=== PATIENT | male | born 1995 | race Native Hawaiian/Other Pacific Islander ===

== ENCOUNTER 2022-11-18 21:05 | Emergency (ER) | payer MEDICAID, OTHER, SELFPAY ==
[2022-11-18 21:14] VITALS: BP 134/95; PULSE 108; RESP 18; TEMP 36.6; O2SAT 99; BMI 29.8
[2022-11-18 21:45] LABS: Hematocrit 48.9 % (42.0-52.0); Hemoglobin 15.8 g/dl (14.0-18.0); Mean Corpuscular HGB Conc 32.3 g/dl (31.0-36.0); Mean Corpuscular Hemoglobin 26.9 pg (27.0-33.0); Mean Corpuscular Volume 83.2 fL (80.0-98.0); Mean Platelet Volume 9.6 fL (9.4-12.4); Platelet Count 266 X10*3/uL (160-400); Red Blood Count 5.88 X10*6/uL (4.60-5.80); Red Cell Distribution Width 13.2 % (11.0-16.0); White Blood Count 6.3 X10*3/uL (4.8-10.8)
[2022-11-18 21:58] LABS: Amphetamine Screen Urine Not Detected (Not Detect); Barbiturates, Urine Not Detected (Not Detect); Benzodiazepines Screen Urine Not Detected (Not Detect); Cannabinoid Screen Urine Not Detected (Not Detect); Cocaine Screen Urine Not Detected (Not Detect); Fentanyl, urine Not Detected (Not Detect); Opiate Screen Urine Not Detected (Not Detect); Phencyclidine Screen Urine Not Detected (Not Detect)
[2022-11-18 21:59] LABS: COVID-19 Test Negative (Negative); IDNOW Serial# 6674DD1D
[2022-11-18 22:01] LABS: Alanine Aminotransferase 45 U/L (0-40); Albumin Level 4.9 g/dL (3.5-5.0); Alkaline Phosphatase 97 U/L (39-117); Anion Gap 17 (12-20); Aspartate Amino Transferase 30 U/L (5-37); Bilirubin Total 0.7 mg/dL (0.0-1.0); Blood Urea Nitrogen 11 mg/dL (9-16); Calcium 10.2 mg/dL (8.4-10.2); Carbon Dioxide 26 mmol/L (22-29); Chloride 102 mmol/L (96-108); Creatinine Clr Calc Pharmacy 127.5; Estimated Glomerular Filt Rate > 60; Ethanol < 10 mg/dL; Glucose Random 105 mg/dL (60-115); Potassium 3.8 mmol/L (3.3-5.1); Sodium 141 mmol/L (135-145)
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
[2022-11-18 22:31] LABS: Acetaminophen LAB < 17 mcg/mL (<30); Salicylate < 5.0 mg/dL (15-30)
[2022-11-18] MEDS: LORazepam 1 MG TABLET 2 MG PO (23:57)
[2022-11-19 00:10] VITALS: BP 136/84; PULSE 89; RESP 17; TEMP 36.6; O2SAT 99
--- NOTE | 2022-11-19 01:40 | PC.NURSE ---
Patient in currently in bed appears sleeping, no distress observed/reported, Ativan 2 mg PO administered at 2357 for increased restlessness with + effect, patient arrived in [place] a [place] ago, no psychiatric history, currently not on any medication, VSS, Kyrgyz speaking only, disposition per care team is section 12 inpatient bed search, behavior non concerning, will continue to monitor.
--- NOTE | 2022-11-19 11:00 | PC.NURSE ---
Patient calm and cooperative ambulating around pod and talking on the phone with .
--- NOTE | 2022-11-19 11:07 | MHC.CARE ---
RAD Team [facility], however, there are no available beds statewide. Patient is uninsured which poses a barrier. The bed search will be exhausted today and resumed tomorrow 11/20/22 if deemed necessary. CARE team has been notified.
--- NOTE | 2022-11-19 13:28 | MHC.CARE ---
Per Dr Hansen, pt does not meet criteria for IPLOC. Pt is declining intermediate placement
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
[2022-11-19 13:44] VITALS: BP 129/77; PULSE 105; RESP 16; TEMP 36.4; O2SAT 97
== END 2022-11-19 14:02 | disposition home or self-care (01) ==
PROVIDERS: Emergency Provider Emergency Medicine
DX: F43.22 Adjustment disorder with anxiety (principal); F33.1 Major depressive disorder, recurrent, moderate; R45.851 Suicidal ideations; Z20.822 Contact with and (suspected) exposure to COVID-19; Z20.828 Contact with and (suspected) exposure to other viral communicable diseases; Z79.899 Other long term (current) drug therapy
CPT/HCPCS: 36415; 80053; 80143; 80179; 80307; 85027; 87635; 99284; S9485

== ENCOUNTER 2022-11-19 17:40 | Inpatient (IN) | payer MEDICAID, OTHER, SELFPAY ==
[2022-11-19 17:50] VITALS: BP 121/82; PULSE 115; RESP 18; TEMP 36.6; O2SAT 96; BMI 26.7
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
[2022-11-19 19:19] LABS: COVID-19 Test Negative (Negative); IDNOW Serial# 6674DD1D
--- NOTE | 2022-11-20 06:21 | PC.NURSE ---
Patient slept through the night, no distress observed/reported, behavior non concerning, medication rec completed/pending provider's approval, patient was assessed by care team disposition current provider, patient will be discharged in the morning, VSs, will continue to monitor
[2022-11-20 06:35] VITALS: BP 115/67; PULSE 67; RESP 16; TEMP 36.8; O2SAT 97
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
[2022-11-20] MEDS: clonazePAM 1 MG TABLET PO (13:35)
[2022-11-20] MEDS: clonazePAM 0.5 MG TABLET PO (20:41)
[2022-11-20] MEDS: QUEtiapine Fumarate 50 MG TABLET PO (21:19)
[2022-11-20 22:30] VITALS: BP 111/63; PULSE 75; RESP 17; TEMP 36.7; O2SAT 96
--- NOTE | 2022-11-21 | ECG_ITS ---
Test Reason : MED CLEARANCE Blood Pressure : / mmHG Vent. Rate : 081 BPM Atrial Rate : 081 BPM P-R Int : 168 ms QRS Dur : 078 ms QT Int : 350 ms P-R-T Axes : 064 059 057 degrees QTc Int : 406 ms Poor data quality, interpretation may be adversely affected Normal sinus rhythm Normal ECG No previous ECGs available Referred By: Zainab Baig Electronically Signed By:JENIFER OLSON MD
--- NOTE | 2022-11-21 03:05 | PC.NURSE ---
Pt sleeping at the bedside in no apparent distress. Breaths are even, regular, and unlabored with equal chest rises. Will continue to monitor.
[2022-11-21 06:52] VITALS: BP 94/57; PULSE 63; RESP 17; TEMP 36.8; O2SAT 99
[2022-11-21] MEDS: QUEtiapine Fumarate 50 MG TABLET PO ×2 (12:03→23:19)
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
[2022-11-21] MEDS: clonazePAM 1 MG TABLET PO (14:21)
[2022-11-21] MEDS: clonazePAM 0.5 MG TABLET PO (20:27)
[2022-11-21 20:43] VITALS: BP 130/71; PULSE 83; RESP 20; TEMP 36.6; O2SAT 98
[2022-11-21 21:36] VITALS: BMI 32.2
[2022-11-21 22:24] VITALS: BP 131/75; PULSE 82; TEMP 36.4; O2SAT 97
[2022-11-21] MEDS: traZODone HCL 50 MG TABLET PO (23:19)
--- NOTE | 2022-11-22 03:15 | PC.ADMIT ---
this is the first [facility] M3 admission for this Vietnamese speaking 27 year old male. legal: arrived to unit with section B signed by unit provider. also had a signed CV witnessed by this director underwriter sales and then submitted 3 day notice. was a referral from the emergency room after assessment by the CARE team. nurse to nurse and collateral information obtained prior to admission. electronic news gathering editor utilized for assessment, for all legals and orientation to the unit. patient stated that he was homeless, that ''his liberties were being taken advantage of and that he did not require hospitalization'' reported that he was attempting to seek ways of obtaining housing for him and his family and that being in the hospital was interfering with a meeting that is set up for him and his family in regards to possible help and transition to safe living in [place] tomorrow. ''I have a meeting at 10:00'' states is a half-way in [place]. reports that if he needed any money an aunt would help him with ''a small amount to help'' appeared to have made a phone call to his , following call stated ''thank God, there is a meeting tomorrow'' ''I need to be there'' did state this in broken [place]ib[place]ian. denied any psychiatric symptoms with the exception of feeling anxious and stating ''I miss my and children'' and stating due to homelessness he ''needed sleep'' although cooperative to nursing assessment in which he denied any medical or behavioral health issues, refused to sign any other paperwork and appeared to understand his rights as a patient in regards to the length of time for a ''section'' ''only 3 days but I'd like the doctor to let me leave tomorrow'' again referring to a meeting about housing and placement. refused to sleep in assigned room identifying that he did not feel comfortable. allowed to sleep in group room. no providers, no current medications. safety tool and treatment plan initiated.
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
[2022-11-22 09:47] VITALS: BP 125/58; PULSE 88; RESP 18; TEMP 36.7; O2SAT 99
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
--- NOTE | 2022-11-22 15:01 | PC.NURSE ---
Met with patient with revenue accounting manager for review of discharge paperwork. Reports he is ready for discharge I want to discharge and figure out the situation and move forward . Denies depression or sadness, denies SI/HI at this time. Reports he has normal feelings when away from his family. Praying to God the situation will get better . The only voices I hear say this is temporary . When I get out of here I want to find a job or program to help me because of my situation . Discharge paperwork reviewed, no follow up appointments scheduled. Medication reviewed, reports understanding. Informed of [facility] walk in services if in need of medical attention. Crisis numbers provided. All belongings taken with patient.
== END 2022-11-22 14:15 | disposition home or self-care (01) | DRG 755 ==
LOC: HO.ED 20:13 → HO.PADLT16 11-21 20:48
PROVIDERS: Admitting Provider Psychiatry & Neurology Psychiatry; Emergency Provider Emergency Medicine; Visit Provider Social Worker
DX: F43.22 Adjustment disorder with anxiety (principal); F17.210 Nicotine dependence, cigarettes, uncomplicated; Z20.822 Contact with and (suspected) exposure to COVID-19; Z71.6 Tobacco abuse counseling
CPT/HCPCS: 87635; 93005; 99285